=== PATIENT | female | born 1980 | race Caucasian/White ===

== ENCOUNTER 2018-07-14 15:50 | Inpatient (IN) | payer MEDICAID ==
[~2018-07-14] VITALS: Ht 170.2 cm; Wt 62.1 kg
[2018-07-14] MEDS: FOLIC ACID 1 MG TAB PO SCH (09:00)
[2018-07-14 15:56] VITALS: BP 105/62
--- NOTE | 2018-07-14 15:58 | NUR ---
PT BIBA TO BED 6
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
--- NOTE | 2018-07-14 17:20 | NUR ---
Patient being evaluated by physician at bedside.
[2018-07-14] MEDS ORDERED: NACL 0.9% 1,000 ML IV ONE ×2 (17:42→17:45)
--- NOTE | 2018-07-14 17:44 | NUR ---
Patient being evaluated by physician at bedside.
--- NOTE | 2018-07-14 17:45 | NUR ---
PT REFUSE URINE COLLECTION AT THIS TIME
--- NOTE | 2018-07-14 18:20 | NUR ---
LAB AT BEDSIDE
[2018-07-14 18:33] LABS: BASOPHILS # (AUTO) 0.1 K/uL (0.00-0.22); BASOPHILS % (AUTO) 1.2 % (0.0-2.0); EOSINOPHILS # (AUTO) 0.1 K/uL (0-0.4); EOSINOPHILS % (AUTO) 1.3 % (0.0-4.0); HEMATOCRIT 44.2 % (36-48); HEMOGLOBIN 14.4 g/dL (12.0-16.0); LYMPHOCYTES # (AUTO) 2.4 K/uL (2.5-16.5); MEAN CORPUSCULAR HEMOGLOBIN 32 pg (27-31); MEAN CORPUSCULAR HGB CONC 33 g/dL (33-37); MONOCYTES # (AUTO) 0.5 K/uL (0.8-1.0); MONOCYTES % (AUTO) 8.3 % (1.7-9.3); NEUTROPHILS # (AUTO) 2.9 K/uL (1.8-7.7); NEUTROPHILS % (AUTO) 48.2 % (42.2-75.2); PLATELET COUNT (AUTO) 334 K/uL (140-450); RED BLOOD CELL COUNT(AUTO) 4.47 MIL/uL (4.20-5.40); WHITE BLOOD COUNT (AUTO) 5.9 K/uL (4.8-10.8)
[2018-07-14 18:47] LABS: ANION GAP 15.1 (8-16); CARBON DIOXIDE 26.8 mmol/L (21-32); CREATININE 0.7 mg/dL (0.6-1.3); POTASSIUM 3.9 mmol/L (3.5-5.1)
[2018-07-14 18:51] LABS: SALICYLATE < 2.8 mg/dL (2.8-20.0)
[2018-07-14 18:55] LABS: ALBUMIN 3.6 g/dL (3.4-5.0); TOTAL BILIRUBIN 0.1 mg/dL (0.0-1.0)
--- NOTE | 2018-07-14 19:10 | NUR ---
REPORT RECEIVED FROM YAHAIRA CASTILLO
--- NOTE | 2018-07-14 19:46 | NUR ---
deshawn hendricks called per dr. madrigal to place pt on hold d/t pt taking alcohol and xanax knowingly at the same time.
--- NOTE | 2018-07-14 19:54 | NUR ---
PD AT BEDSIDE
--- NOTE | 2018-07-14 20:00 | NUR ---
PT PLACED ON 5150 HOLD PER PD, PT DISROBED WITH ALL PERSONAL BELONGINGS PLACED IN BAG AND HANDED TO SECURITY FOR SAFEKEEPING. PT IN GOWN AND HOSPITAL SOCKS. ALL MEDICAL EQUIPMENT MOVED FROM ROOM AND SITTER PLACED AT BEDSIDE.
[2018-07-14] MEDS ORDERED: ONDANSETRON 4 MG/2 ML VIAL IM/IVP PRN (22:30)
[2018-07-14] MEDS ORDERED: ACETAMINOPHEN 325 MG TAB PO PRN (22:30)
[2018-07-14] MEDS ORDERED: DOCUSATE SODIUM 100 MG GELCAP PO PRN (22:30)
[2018-07-14 23:00] VITALS: BP 146/101
--- NOTE | 2018-07-14 23:00 | NUR ---
PT ARRIVED VIA WHEELCHAIR. AMBULATED TO CHAIR NOT WILLING TO LAY IN BED STATING, "THAT'S WHERE PEOPLE !" RECEIVED REPORT FROM ER NURSE AT BEDSIDE. PT AOX4, ON ROOM AIR, WITH IV ON RIGHT AC #20G. SKIN INTACT, WARM AND NORMAL COLOR TO ETHNICITY. PT CRYING WANTING TO GO HOME AND SPEAK WITH FAMILY. DINKEY DRIVER LESLIE IN PT ROOM. DISCUSSED PLAN OF CARE AND PT VERBALIZED UNDERSTANDING. NO S/S OF RESPIRATORY DISTRESS OR DISCOMFORT NOTED AT THIS TIME. MRSA SWAB COLLECTED IN ER BY DINKEY DRIVER LESLIE. VITAL SIGNS TAKEN AND ELEVATED BP NOTED DUE TO PT SITTING STYLE AND CRYING. PT WAS FINALLY CONVINCED TO LAY IN BED. BED IN LOWEST POSITION, BED BREAKS ON, BOTH SIDE RAILS UP. ORIENTED PT TO ROOM, BED, AND 5150 RULES. PT VERBALIZED UNDERSTANDING. WILL CONTINUE TO MONITOR.
--- NOTE | 2018-07-14 23:06 | NUR ---
Patient will be admitted to care of [facility]. Admited to [facility]. Will go to room 122-B. Belongings list completed. Report to YAHAIRA FLORES.
[2018-07-14] MEDS ORDERED: THIAMINE 100 MG TAB PO SCH (23:30)
[2018-07-14] MEDS ORDERED: chlordiazePOXIDE 25 MG CAP PO SCH (23:30)
[2018-07-14] MEDS ORDERED: MULTIVITAMIN 1 TAB PO SCH (23:30)
[2018-07-14] MEDS ORDERED: FOLIC ACID 1 MG TAB PO SCH (23:30)
[2018-07-14] MEDS ORDERED: ESCI10TA PO (23:44)
[2018-07-14] MEDS: NACL 0.9% 1,000 ML IV SCH (23:59)
--- NOTE | 2018-07-15 00:02 | NUR ---
FIRST IVF BAG HUNG, SCHEDULED MEDICATION GIVEN AND TOLERATED WELL. NO S/S OF RESPIRATORY DISCOMFORT NOTED AT THIS TIME. WILL CONTINUE TO MONITOR.
--- NOTE | 2018-07-15 02:00 | NUR ---
PT SLEEPING IN BED. NO S/S OF RESPIRATORY DISCOMFORT NOTED AT THIS TIME. WILL CONTINUE TO MONITOR.
--- NOTE | 2018-07-15 04:00 | NUR ---
PT CONTINUES TO SLEEP IN BED. NO S/S OF RESPIRATORY DISCOMFORT NOTED AT THIS TIME. WILL CONTINUE TO MONITOR.
[2018-07-15 04:19] LABS: APPEARANCE,URINE CLEAR (CLEAR); BILIRUBIN,URINE NEGATIVE (NEGATIVE); BLOOD, URINE NEGATIVE (NEGATIVE); COLOR,URINE YELLOW (YELLOW); UGLUCOSE NEGATIVE (NEGATIVE)
[2018-07-15 04:20] LABS: LEUKOCYTE ESTERASE ,URINE NEGATIVE (NEGATIVE); NITRITE, URINE NEGATIVE (NEGATIVE)
[2018-07-15 04:22] LABS: BENZODIAZEPINE, URINE NEG. ng/mL (NEG <=200); CANNABINOID, URINE POS. ng/mL (NEG <=50); COCAINE, URINE POS. ng/mL (NEG <=300); OPIATE, URINE NEG. ng/mL (NEG <=2000); PHENCYCLIDINE SCREEN,URINE NEG. ng/mL (NEG <=25)
[2018-07-15 04:28] LABS: BARBITURATE, URINE NEGATIVE ng/ml (NEG <=200)
--- NOTE | 2018-07-15 06:00 | NUR ---
PT CONTINUES TO SLEEP IN BED. NO S/S OF RESPIRATORY DISCOMFORT NOTED AT THIS TIME. WILL CONTINUE TO MONITOR.
--- NOTE | 2018-07-15 07:24 | NUR ---
ENDORSED PT CARE TO DAY SHIFT NURSE USHA SANTIZO FOR CONTINUITY OF CARE.
--- NOTE | 2018-07-15 07:30 | NUR ---
RECEIVED PT FROM PLASTIC JOINT MAKER NURSE, SANDRA, PT IS AWAKE AND 1:1 SITTER ON THE BEDSIDE, ROOM WAS CHECKED AND SUICIDAL PRECAUTION ENFORCED. PT HAS AN IV LINE ON THE RT AC G.20, INTACT WITH NS AT 100ML/HR INFUSING. SIDE RAILS ARE UP AND BED IN LOW POSITION, SAFETY PRECAUTION ENFORCED ALSO, NO SOB, PT DENIES PAIN AT THIS TIME. WILL CONTINUE TO MONITOR PT.
[2018-07-15 07:55] LABS: BASOPHILS % (AUTO) 0.4 % (0.0-2.0); EOSINOPHILS # (AUTO) 0.1 K/uL (0-0.4); EOSINOPHILS % (AUTO) 2.3 % (0.0-4.0); HEMATOCRIT 39.1 % (36-48); HEMOGLOBIN 12.8 g/dL (12.0-16.0); LYMPHOCYTES % (AUTO) 48.1 % (20.5-51.1); MEAN CORPUSCULAR HEMOGLOBIN 32 pg (27-31); MEAN CORPUSCULAR HGB CONC 33 g/dL (33-37); MEAN CORPUSCULAR VOLUME 98.9 fL (80-94); MONOCYTES # (AUTO) 0.4 K/uL (0.8-1.0); MONOCYTES % (AUTO) 6.2 % (1.7-9.3); NEUTROPHILS # (AUTO) 2.7 K/uL (1.8-7.7); PLATELET COUNT (AUTO) 288 K/uL (140-450); RED BLOOD CELL COUNT(AUTO) 3.96 MIL/uL (4.20-5.40); RED CELL DISTRIBUTION WIDTH 14.3 % (11.6-13.7); WHITE BLOOD COUNT (AUTO) 6.3 K/uL (4.8-10.8)
[2018-07-15 08:00] VITALS: BP 127/85
[2018-07-15 08:00] LABS: ANION GAP 11.5 (8-16); CREATININE 0.7 mg/dL (0.6-1.3); POTASSIUM 3.5 mmol/L (3.5-5.1)
[2018-07-15 08:08] LABS: PROTHROMBIN TIME 10.4 secs (10.8-13.4)
[2018-07-15 08:12] LABS: CHOL/HDL RATIO 3.1 (1-4.5); MAGNESIUM 1.8 mg/dL (1.8-2.4); PHOSPHORUS 3.7 mg/dL (2.5-4.9); THYROID STIMULATING HORMONE 3.16 uIU/mL (0.34-3.74)
[2018-07-15] MEDS: FOLIC ACID 1 MG TAB PO SCH (08:43)
[2018-07-15] MEDS: MULTIVITAMIN 1 TAB PO SCH (08:43)
[2018-07-15] MEDS: THIAMINE 100 MG TAB PO SCH (08:43)
[2018-07-15] MEDS: ESCITALOPRAM 20 MG TAB PO SCH (08:44)
[2018-07-15] MEDS: chlordiazePOXIDE 25 MG CAP PO SCH ×3 (08:44→16:42)
[2018-07-15] MEDS: NACL 0.9% 1,000 ML IV SCH (08:44)
--- NOTE | 2018-07-15 08:48 | NUR ---
PT IS AWAKE AND 1:1 SITTER ON THE BEDSIDE, ORAL MEDICATIONS GIVEN, V/S CHECKED PER PARAMETER, PT TOLERATED THE MEDICATIONS AND WILL CONTINUE TO MONITOR PT.
--- NOTE | 2018-07-15 09:23 | NUR ---
PATIENT HAS BEEN SCREENED AND CATEGORIZED LOW NUTRITION RISK. PATIENT WILL BE SEEN WITHIN 7 DAYS OF ADMISSION. 07/21/[address]
[2018-07-15] MEDS ORDERED: ALBUTEROL SULFATE/IPRATROPIU 3 ML SOL IH PRN (11:10)
--- NOTE | 2018-07-15 11:24 | NUR ---
MAXI NOTE PACKET FAXED TO [facility] [phone] [place]OTT # [phone].
[2018-07-15] MEDS ORDERED: LACTULOSE 20 GM/30 ML UDC PO SCH (11:30)
--- NOTE | 2018-07-15 12:22 | NUR ---
PT IS AWAKE AND SEATED ON THE BED, WITH MOTHER ON THE BEDSIDE, MEDICATIONS GIVEN AND PT TOLERATED IT. NO SIGN OF DISTRESS NOTED, 1:1 SITTER ON THE BEDSIDE.
--- NOTE | 2018-07-15 13:42 | NUR ---
Faxed over paperwork for review to: [facility] at the following facilities: [place] [facility] s/w Danielle [facility] [place] [facility] s/w Wendy [facility] s/w Hussain [facility] s/w [facility] s/w Tejas Pitts [facility] s/w Luis Carlos will continue to look for placement throughout shift.
[2018-07-15 16:00] VITALS: BP 118/71
--- NOTE | 2018-07-15 16:43 | NUR ---
PT IS AWAKE AND WAS ASKED TO USE THE INCENTIVE SPIROMETER AND PT WAS ABLE TO REACH HIGH 2500 IN THE IS GAUGE. VITAL SIGNS TAKEN AND IS WITHIN NORMAL LIMITS. ORAL MEDICATION WAS GIVEN AND PT TOLERATED IT. 1:1 SITTER ON THE BEDSIDE, WILL CONTINUE TO MONITOR PT.
--- NOTE | 2018-07-15 17:54 | NUR ---
DR. ARCHULETA DISCONTINUED THE IV FLUID OF THE PT AND MADE A VERBAL ORDER WELL. WILL CARRY OUT ORDER.
--- NOTE | 2018-07-15 18:30 | NUR ---
PT JUST FINISHED EATING HER DINNER, 1: 1 SITTER ON THE BEDSIDE. WILL MONITOR PT.
--- NOTE | 2018-07-15 19:15 | NUR ---
ENDORSED PT TO HAM FACER NURSECASSY, FOR CONTINUITY OF CARE, 1:1 SITTER AND MOTHER ON THE BEDSIDE AND IS STABLE AT THIS TIME.
--- NOTE | 2018-07-15 19:16 | NUR ---
RECD. SITTING ON BED, AWAKE, A/OX4, CONVERSING WITH MOTHER. RESPIRATION EVEN AND UNLABORED. IV SALINE LOCK AT THE RIGHT AC G 20, PATENT AND INTACT. STATED NO PLANS OF HURTING SELF BUT WANTS TO GO HOME. EXPLAINED THAT SHE NEEDS TO BE SEEN FIRST BY PSYCHOLOGY ASSEMBLER TRACTOR BEFORE DISCHARGE. ON VEGETARIAN DIET,REQUESTED MOM TO BUY FOOD. PLAN OF CARE FOR THE SHIFT DISCUSSED. VERBALIZED UNDERSTANDING. DENIES PAIN 0/10.
[2018-07-15] MEDS: HYDROcodone/APAP 5/325 MG 1 TAB TAB PO PRN (19:38)
--- NOTE | 2018-07-15 20:00 | NUR ---
Patient's Plan of Care was discussed and reviewed with BOOM MAN: MAYANK, WILL CONTINUE WITH CURRENT PLAN OF CARE. [id number]
--- NOTE | 2018-07-15 20:15 | NUR ---
MOTHER CAME AND BROUGHT TACOS FOR PATIENT, THEN LEFT. ABLE TO EAT 80%.
--- NOTE | 2018-07-15 21:00 | NUR ---
REQUESTED TO SPEAK WITH MD REGARDING ORDER FOR LACTULOSE BEFORE TAKING MEDICATION. DR. MOYA CAME AND EXPLAINED,AMMONIA LEVEL IS HIGH. PATIENT VERBALIZED UNDERSTANDING.
[2018-07-15] MEDS: LACTULOSE 20 GM/30 ML UDC PO SCH (21:03)
--- NOTE | 2018-07-15 21:50 | NUR ---
VERIFY WITH DR. MOYA REGARDING PSYCHOLOGIST CONSULT, STATED DR. ELIZABETH WAS ALREADY INFORMED.
[2018-07-15] MEDS: LORazepam 1 MG TAB PO PRN (22:05)
--- NOTE | 2018-07-15 22:05 | NUR ---
WITH ANXIETY, MEDICATED WITH ATIVAN 1 MG. PO.
--- NOTE | 2018-07-15 23:05 | NUR ---
NO ANXIETY NOTED, READING MAGAZINES IN BED.
--- NOTE | 2018-07-15 23:55 | NUR ---
UNABLE TO SLEEP, MEDICATED WITH AMBIEN 10 MG. ORDERED.
[2018-07-16] VITALS: BP 142/91
[2018-07-16] MEDS ORDERED: ZOLPIDEM 10 MG TAB PO SCH
--- NOTE | 2018-07-16 00:36 | NUR ---
SLEEPING COMFORTABLY IN BED.
--- NOTE | 2018-07-16 03:21 | NUR ---
At this time there are no vacancy at any of the facilities, [facility]- [facility] intake [place] intake [facility] intake will notify Luh SYED charge nurse is placement is found.
--- NOTE | 2018-07-16 04:00 | NUR ---
STILL SLEEPING COMFORTABLY IN BED. RESPIRATION EVEN AND UNLABORED.
--- NOTE | 2018-07-16 07:00 | NUR ---
ASSUMED CONTINUITY OF CARE. NO SIGNS AND SYMPTOMS OF ACUTE DISTRESS NOTED. SLEEPING WELL AT THIS TIME. KEEP ENVIRONMENT SAFE. WILL MONITOR CLOSELY FOR SUICIDAL PREVENTION.
--- NOTE | 2018-07-16 07:00 | NUR ---
ABLE TO SLEEP WELL. CONDITION REMAIN STABLE. ENDORSED TO AM NURSE BELLA FOR CONTINUITY 0F CARE.
[2018-07-16 07:28] LABS: BASOPHILS % (AUTO) 0.4 % (0.0-2.0); EOSINOPHILS # (AUTO) 0.2 K/uL (0-0.4); EOSINOPHILS % (AUTO) 2.7 % (0.0-4.0); HEMATOCRIT 41.7 % (36-48); HEMOGLOBIN 13.9 g/dL (12.0-16.0); LYMPHOCYTES # (AUTO) 1.3 K/uL (2.5-16.5); LYMPHOCYTES % (AUTO) 18.5 % (20.5-51.1); MEAN CORPUSCULAR HEMOGLOBIN 33 pg (27-31); MEAN CORPUSCULAR HGB CONC 33 g/dL (33-37); MEAN CORPUSCULAR VOLUME 98.9 fL (80-94); MONOCYTES # (AUTO) 0.3 K/uL (0.8-1.0); MONOCYTES % (AUTO) 4.9 % (1.7-9.3); NEUTROPHILS % (AUTO) 73.5 % (42.2-75.2); PLATELET COUNT (AUTO) 270 K/uL (140-450); RED BLOOD CELL COUNT(AUTO) 4.22 MIL/uL (4.20-5.40); RED CELL DISTRIBUTION WIDTH 13.9 % (11.6-13.7); WHITE BLOOD COUNT (AUTO) 6.9 K/uL (4.8-10.8)
[2018-07-16 07:44] LABS: CARBON DIOXIDE 27.5 mmol/L (21-32); CREATININE 0.6 mg/dL (0.6-1.3); POTASSIUM 3.5 mmol/L (3.5-5.1)
--- NOTE | 2018-07-16 07:44 | NUR ---
DR. NEUMANN AND DR. ARCHULETA CAME AND SPOKE TO PT. AT BEDSIDE. PT. CALM AND COOPERATIVE.
[2018-07-16 08:00] VITALS: BP 124/73
--- NOTE | 2018-07-16 08:00 | NUR ---
Patient's Plan of Care was discussed and reviewed with BUTCHER HEAD: JENA
--- NOTE | 2018-07-16 08:29 | NUR ---
[facility] will contact contracted facilities for bed availability and update nursing staff if bed comes available.
[2018-07-16] MEDS: LACTULOSE 20 GM/30 ML UDC PO SCH ×2 (08:54→20:18)
[2018-07-16] MEDS: chlordiazePOXIDE 25 MG CAP PO SCH ×3 (08:54→16:56)
[2018-07-16] MEDS: FOLIC ACID 1 MG TAB PO SCH (08:54)
[2018-07-16] MEDS: MULTIVITAMIN 1 TAB PO SCH (08:54)
[2018-07-16] MEDS: ESCITALOPRAM 20 MG TAB PO SCH (08:55)
[2018-07-16] MEDS: THIAMINE 100 MG TAB PO SCH (08:55)
--- NOTE | 2018-07-16 08:58 | NUR ---
STARTED EATING BREAKFAST AT THIS TIME. CALM, QUIET, AND COOPERATIVE. NO SUICIDAL THOUGHTS OBSERVED. CONTINUE TO MONITOR CLOSELY FOR SUICIDAL PREVENTION.
--- NOTE | 2018-07-16 10:28 | NUR ---
PT. MOTHER JEANA CAME AND BROUGHT SOME HOMEMADE FOOD FOR PT.. PT. SLEEPING AT THIS TIME AND PT. MOTHER DIDN'T WANT TO WAKE UP PT..
[2018-07-16 12:00] VITALS: BP 102/61
--- NOTE | 2018-07-16 12:24 | NUR ---
DR. FUENTES CAME AND REVIEWED PT. CHART.
--- NOTE | 2018-07-16 13:27 | NUR ---
PT'S MOTHER AT THE BEDSIDE TALKING TO PT.
--- NOTE | 2018-07-16 14:55 | NUR ---
DR. ANGEL CAME AND SPOKE TO PT. AT BEDSIDE. PT. CALM AND COOPERATIVE.
--- NOTE | 2018-07-16 15:07 | NUR ---
DR. ANGEL DONE TALKING TO PT.. PT. REMAINED CALM AND QUIET IN BED.
--- NOTE | 2018-07-16 15:13 | NUR ---
DR. ANGEL CAME BACK AND SPOKE AGAIN TO PT. AT BEDSIDE.
--- NOTE | 2018-07-16 16:05 | NUR ---
WENT TO BATHROOM WITHOUT ASSISTANCE. TOLERATED WELL. HAD STEADY GAIT AND BALANCE. KEEP FREE FROM INJURY.
--- NOTE | 2018-07-16 19:10 | NUR ---
REQUESTED TO REMOVE IV ACCESS ON RIGHT AC GAUGE #20. REFUSED IV INSERTION.
--- NOTE | 2018-07-16 19:20 | NUR ---
BEDSIDE REPORT GIVEN TO JESSICA SANTIZO. IN STABLE CONDITION. ALSO ENDORSED THAT PT. REFUSED IV INSERTION.
[2018-07-16] MEDS: HYDROcodone/APAP 5/325 MG 1 TAB TAB PO PRN (20:23)
--- NOTE | 2018-07-16 20:23 | NUR ---
ADMINISTERED SCHEDULED MEDICATION AND NORCO FOR PAIN, TOLERATED WELL.
[2018-07-16] MEDS: LORazepam 1 MG TAB PO PRN (22:39)
[2018-07-17] VITALS: BP 132/70
[2018-07-17] MEDS ORDERED: ZOLPIDEM 10 MG TAB PO SCH ×2 (01:00→21:00)
--- NOTE | 2018-07-17 03:51 | NUR ---
NO placement found at this time [facility] Moore - Kaylan intake [facility] Chan-[facility] intake Santhosh Wadley - Johanna intake will continue to make calls.
--- NOTE | 2018-07-17 07:30 | NUR ---
RECEIVED PT ON BED ASLEEP. NO SOB NOTED. NO SIGNS OF PAIN AT THIS TIME. NO IV ACCESS. CHEST, DIMINISHED AIR ENTRY TO THE BASES, OTHERWISE CLEAR. ABDOMEN SOFT, BOWEL SOUNDS PRESENT. NO EDEMA NOTED. BED ON LOWEST POSITION, BED ALARM ON, WITH 3 SIDE RAILS RAISED UP. CALL LIGHT WITHIN REACH. WILL CONTINUE TO MONITOR FOR SUICIDAL IDEATION. Addendum: 07/17/18 at 1004 by Cordelia De Leon RN @0730 HRS: NO CALL LIGHT PER PROTOCOL, WITH SITTER FOR 5150 HOLD.
--- NOTE | 2018-07-17 07:35 | NUR ---
ENDORSED PT TO DAY SHIFT RN COSME FOR CONTINUITY OF CARE. PT IN STABLE CONDITION.
[2018-07-17 08:00] VITALS: BP 113/58
--- NOTE | 2018-07-17 08:05 | NUR ---
DR. VELEZ ON ROUNDS WITH RESIDENTS. PT AAOX4. NO SOB NOTED. NO SIGNS OF PAIN AT THIS TIME.
--- NOTE | 2018-07-17 09:00 | NUR ---
PT SLEEPING. NO SOB NOTED. NO SIGNS OF PAIN AT THIS TIME.
--- NOTE | 2018-07-17 10:00 | NUR ---
PT'S MOTHER AT THE BEDSIDE VISITING. PT AWAKE, NO COMPLAINTS MADE. STATED SHE WILL TAKE ALL HER SCHEDULED MEDS AFTER SHE FINISHED HER BREAKFAST.
[2018-07-17] MEDS: THIAMINE 100 MG TAB PO SCH (11:20)
[2018-07-17] MEDS: chlordiazePOXIDE 25 MG CAP PO SCH ×2 (11:20→13:04)
[2018-07-17] MEDS: LACTULOSE 20 GM/30 ML UDC PO SCH (11:20)
[2018-07-17] MEDS: MULTIVITAMIN 1 TAB PO SCH (11:21)
[2018-07-17] MEDS: FOLIC ACID 1 MG TAB PO SCH (11:21)
[2018-07-17] MEDS: ESCITALOPRAM 20 MG TAB PO SCH (11:21)
--- NOTE | 2018-07-17 12:00 | NUR ---
I RECEIVED A CALL FROM [facility] PATIENT IS ACCEPTED TO [facility] UN[address] BALDERAS PHONE# [phone]
--- NOTE | 2018-07-17 13:00 | NUR ---
PT IS AGREEABLE OF THE TRANSFER TO IN PATIENT PSYCH FACILITY. PT'S MOTHER SITA AT THE BEDSIDE IS AWARE WELL.
[2018-07-17] MEDS: HYDROcodone/APAP 5/325 MG 1 TAB TAB PO PRN (13:05)
--- NOTE | 2018-07-17 13:23 | NUR ---
REPORT GIVEN TO TORI AT [facility].
--- NOTE | 2018-07-17 13:57 | NUR ---
[facility] TRANSPORTATION SET UP ( ), ETA AROUND 2:15 PM TODAY PER RAY OF [facility].
--- NOTE | 2018-07-17 14:00 | NUR ---
PT'S FACE SHEET AND CMN FORM FAXED TO [facility], CONFIRMATION ATTACHED TO PT'S CHART.
--- NOTE | 2018-07-17 14:45 | NUR ---
PT IS BEING PICKED UP BY [facility] IN STABLE CONDITION. ALL BELONGING SENT WITH PT. PT IS IN AGREEMENT TO TRANSFER TO [facility].
== END 2018-07-17 14:45 | DRG 816 ==
LOC: MED 15:50 → MTU 22:34
PROVIDERS: ADMIT General Practice; ATTEND General Practice
DX: T40.5X1A Poisoning by cocaine, accidental (unintentional), initial encounter (principal); G92 Toxic encephalopathy; E87.0 Hyperosmolality and hypernatremia; E87.8 Other disorders of electrolyte and fluid balance, not elsewhere classified; F10.129 Alcohol abuse with intoxication, unspecified; F14.10 Cocaine abuse, uncomplicated; K70.40 Alcoholic hepatic failure without coma; E78.5 Hyperlipidemia, unspecified; Y90.8 Blood alcohol level of 240 mg/100 ml or more; F32.9 Major depressive disorder, single episode, unspecified; F41.9 Anxiety disorder, unspecified; T40.7X1A Poisoning by cannabis (derivatives), accidental (unintentional), initial encounter; J98.11 Atelectasis; Z91.5 Personal history of self-harm; Y92.89 Other specified places as the place of occurrence of the external cause; Z71.51 Drug abuse counseling and surveillance of drug abuser
CPT/HCPCS: 36415; 71045; 76705; 80048; 80053; 80305; 81003; 81025; 82140; 82150; 83036; 83605; 83690; 83735; 83880; 84100; 84443; 85025; 85610; 85730; 87081; 93005; 96360; 96361; 99285; G0480; G0482; J7030; Q0092